=== PATIENT | male | born 1985 | race African-American/Black ===

== ENCOUNTER 2017-08-18 12:46 | Emergency (ER) | payer SELFPAY ==
[~2017-08-18] VITALS: Ht 175.3 cm; Wt 83.9 kg
[~2017-08-18 12:46] MED LIST: AUGMENTIN 875 M1 TAB PO; INDOMETHACIN50 MG PO; MEDROL DOSEPAK1 PAC PO; MOBIC15 MG PO; NEXIUM 40MG40 MG PO
--- NOTE | 2017-08-18 13:17 | ED CARDIAC/CP/PALPITATIONS ---
History of Present Illness General Chief Complaint: Chest Pain Stated Complaint: PT IS HAVING CHEST PAIN Source: patient (`), old records Exam Limitations: no limitations Vital Signs & Intake/Output Vital Signs & Intake/Output Vital Signs Date Time Temp Pulse Resp B/P B/P Pulse O2 O2 Flow FiO2 Mean Ox Delivery Rate 08/18 1703 97.6 59 18 115/69 98 Room Air 08/18 1436 98 Room Air 08/18 1435 97.1 72 18 117/76 98 Room Air 08/18 1312 98.1 75 17 118/78 98 Room Air Allergies Coded Allergies: NO KNOWN ALLERGIES (04/02/11) Reconcile Medications Aspirin (Aspirin*) 81 MG TAB.CHEW 1 TAB PO DAILY HEART HEALTH (Reported) Atorvastatin Calcium 40 MG TABLET 1 TAB PO DAILY CHOLESTEROL (Reported) Metoprolol Tartrate 25 MG TABLET 0.5 TAB PO BID HEART (Reported) Tylenol With Codeine (Tylenol With Codeine #3 Tablet) 300 MG-30 MG TABLET 1 TAB PO BIDP PRN pain Triage Note: RECEIVED 32 YO MALE S/P ND 04/30/17, PT C/O BURNING PAIN ACCROSS CHEST AND EPIGASTRIC AREA. EPIGASTRIC DISCOMFORT SINCE ND, PAIN ACCROSS CHEST 3 TO 4 DAYS. Triage Nurses Notes Reviewed? yes Onset: Abrupt Duration: week(s):, constant, waxing and waning Timing: recent history Quality/Severity: mild, aching Location: central Radiation: epigastric Activities at Onset: none Prior Chest Pain/Card Workup: mi, no stents Nitro Today/Relief: no nitro taken today Aspirin Today: 81 mg x 1, provided at home Associated Symptoms: denies HPI: 32-year-old male presents to ER history of myocardial infarction April 2017 high cholesterol hypertension and previous alcohol abuse complaining of chest pain central in nature reading to the epigastric region for the past several months after his heart attack. Patient states he does a lot of lifting at work he denies trauma or injury otherwise no shortness of breath pain with inspiration nausea vomiting or abdominal pain. He's been taking Tylenol without improvement he is not follow-up with his chief controller he's been compliant with taking all of his other medication. The patient denies alcohol tobacco or drug use (Compa STEPHENSON,Marcos) Past History Travel History Traveled to [place] past 21 day No Medical History Any Pertinent Medical History? see below for history Neurological: NONE EENT: NONE Cardiovascular: myocardial infarction Respiratory: NONE Gastrointestinal: GERD Hepatic: NONE Renal: NONE Musculoskeletal: NONE Psychiatric: NONE Endocrine: NONE Blood Disorders: NONE Cancer(s): NONE Surgical History Surgical History: non-contributory Psychosocial History What is your primary language B[place] Tobacco Use: Quit >30 days ago Family History Hx Contributory? No (Marcos Tse) Review of Systems Review of Systems Constitutional: Reports: see HPI. Comments Review of systems: See HPI, All other systems negative. Constitutional, no chills no fever HEENT: no sore throat no congestion Cardiovascular: chest pain Skin: no rashes, no change in skin Respiratory: No dyspnea no cough no sputum GI: No nausea no vomiting, Muscle skeletal: No joint pain, no back pain, no neck pain, Neurologic: , no headache Heme/endocrine: No bruising (Marcos Tse) Physical Exam Physical Exam General Appearance: well developed/nourished, no apparent distress, alert Cardiovascular: regular rate/rhythm Comments: Well-developed well-nourished person in no acute distress HEENT: Normal EENT exam; PERRL, EOMI, HEAD is atraumatic. moist mucous membranes. Neck: Supple, normal range of motion Back: Nontender, Full range of motion Cardiovascular: Regular rate and rhythms no murmurs rubs or gallops, normal JVP Respiratory: Chest tender.There were no bony deformities, no asymmetry. No respiratory distress. Patient speaking in full complete sentences. Breath sounds clear to auscultation bilaterally: NO W/R/R Abdomen: Soft, nontender nondistended Extremity: No edema, full range of motion of extremities, normal and equal pulses bilaterally, 5 out of 5 strength noted to bilateral upper and lower extremities Neuro: Alert oriented x3, motor sensory normal, There were no obvious focal neurologic abnormalities. Skin: No appreciable rash on exposed skin, skin is warm and dry. Psych: Mood and affect is normal, memory and judgment is normal. Core Measures ACS in differential dx? Yes CVA/TIA Diagnosis No Sepsis Present: No Sepsis Focused Exam Completed? No (Marcos Tse) Progress Differential Diagnosis: AMI, aortic dissection, atrial fibrillation, costochondritis, musculoskeletal pain, myocarditis, pericarditis, pneumonia, pneumothorax, pulmonary embolism, unstable angina Plan of Care: Orders Procedure Date/time Status TROPONIN LEVEL 08/18 1600 Complete EKG 08/18 1600 Active Telemetry/Rubber Goods Tester Water 08/18 1257 Active TROPONIN LEVEL 08/18 1257 Complete PARTIAL THROMBOPLASTIN TIME 08/18 1257 Complete PROTHROMBIN TIME 08/18 1257 Complete COMPREHENSIVE METABOLIC PANEL 08/18 1257 Complete CBC WITHOUT DIFFERENTIAL 08/18 1257 Complete EKG 08/18 1250 Active LIPASE 08/18 1113 Complete Laboratory Tests 08/18/17 1610: Troponin I < 0.01 08/18/17 1344: Urine Opiates Screen Cancelled, Methadone Screen Cancelled, Barbiturate Screen Cancelled, Ur Phencyclidine Scrn Cancelled, Amphetamines Screen Cancelled, U Benzodiazepines Scrn Cancelled, Urine Cocaine Screen Cancelled, Urine Cannabis Screen Cancelled 08/18/17 1312: Lipase Cancelled 08/18/17 1113: Anion Gap 11, Estimated GFR > 60, BUN/Creatinine Ratio 10.0, Glucose 108 H, Calcium 9.6, Total Bilirubin 1.1, AST 23, ALT 38, Alkaline Phosphatase 78, Troponin I < 0.01, Total Protein 7.4, Albumin 4.1, Globulin 3.3, Albumin/ Globulin Ratio 1.2, Lipase 201, PT 13.6 H, INR 1.24 H, APTT 32, CBC w Diff NO MAN DIFF REQ, RBC 5.11, MCV 90.7, MCH 30.1, MCHC 33.1, RDW 13.0, MPV 7.6, Gran % 43.1, Lymphocytes % 38.3, Monocytes % 10.7 H, Eosinophils % 7.4 H, Basophils % 0.5, Absolute Granulocytes 1.9, Absolute Lymphocytes 1.7, Absolute Monocytes 0.5 , Absolute Eosinophils 0.3, Absolute Basophils 0 Labs ordered old records reviewed patient acute ibuprofen as discussed with him plan of care need for repeat troponin. Case discussed with Dr. Edmond agrees with plan 08/18/2017 2:58:53 PM patient resting in no acute distress at this time 08/18/2017 4:13:04 PM patient resting in no acute distress pending repeat troponin I discussed with the patient at length all of their results. I had an extensive conversation regarding need for close follow up with their primary care physician this week as well as return precautions. I answered all of their questions, they feel comfortable with the plan and follow-up care. Diagnostic Imaging: Viewed by Me: Radiology Read. Discussed w/RAD: Radiology Read. Radiology Impression: PATIENT: MICHELLE ALARCON PRESENT AGE: 32 PATIENT ACCOUNT NO: [id number] : 86 LOCATION: [facility] ORDERING PHYSICIAN: Marcos STEPHENSON SERVICE DATE: 08/18/17-1342 EXAM TYPE: RAD - XRY-CHEST XRAY, TWO VIEWS EXAMINATION: XR CHEST CLINICAL INFORMATION: Chest pain COMPARISON: 01/12/2014 TECHNIQUE: 2 views of the chest were obtained. FINDINGS: The lungs are well expanded. There is no focal consolidation, edema, or effusion. No pneumothorax. The cardiomediastinal silhouette is within normal limits. No acute osseous abnormality. IMPRESSION: Clear lungs. DICTATED BY: Manjula GEIGER,Rustam DATE/TIME DICTATED:08/18/171405 SPECIAL EDUCATION COORDINATOR: [place] DATE/TIME TRANSCRIBED:08/18/171405 CONFIDENTIAL, DO NOT COPY WITHOUT APPROPRIATE AUTHORIZATION. <Electronically signed in Other Vendor System> SIGNED BY: Manjula GEIGER,Rustam 08/18/17 1411 Initial ED EKG: nsr at 80, no acute st seg chagnes, normal axis, nonspecific st seg changes Prior EKG: unchanged Rhythm Strip: normal sinus rhythm (Compa STEPHENSON,Marcos) Departure Departure Disposition: HOME OR SELF CARE Condition: Stable Clinical Impression Primary Impression: Atypical chest pain Referrals: Dede GEIGER,Paxton Harman (PCP/Family) Additional Instructions: Follow up with your primary care physician and chief controller next week. tylenol with codeine for pain- this is a narcotic and highly addictive. no driving or drinking alcohol while taking. return with any concerns Departure Forms: Customer Survey General Discharge Information Prescriptions: Current Visit Scripts Tylenol With Codeine (Tylenol With Codeine #3 Tablet) 1 TAB PO BIDP PRN pain #8 TAB (Compa STEPHENSON,Marcos) PA/GUN PERFORATOR LOADER Co-Sign Statement Statement: ED Attending supervision documentation- [] I saw and evaluated the patient. I have also reviewed all the pertinent lab results and diagnostic results. I agree with the findings and the plan of care as documented in the PA's/GUN PERFORATOR LOADER's documentation. [X] I have reviewed the ED Record and agree with the PA's/GUN PERFORATOR LOADER's documentation. [] Additions or exceptions (if any) to the PAs/GUN PERFORATOR LOADER's note and plan are summarized below: [] (Feli GEIGER,Mansoor Henriquez) Critical Care Note Critical Care Note Critical Care Time: non-applicable (Compa STEPHENSON,Marcos)
[2017-08-18] MEDS ORDERED: METOPROLOL TART25 M1 PO (13:21)
[2017-08-18] MEDS ORDERED: ASPIRIN81 M4 PO (13:22)
[2017-08-18] MEDS ORDERED: ATORVASTATIN CA40 M1 PO (13:22)
[2017-08-18 13:35] LABS: PT 13.6 SEC (9.4-12.5); PTT 32 SEC (25-37)
[2017-08-18 13:40] LABS: ABSOLUTE BASOPHIL COUNT 0 /CUMM (0.0-0.2); ABSOLUTE EOSINOPHIL COUNT 0.3 /CUMM (0.0-0.7); ABSOLUTE GRANULOCYTE CT 1.9 /CUMM (1.4-6.5); ABSOLUTE LYMPH COUNT 1.7 /CUMM (1.2-3.4); ABSOLUTE MONOCYTE COUNT 0.5 /CUMM (0.10-0.60); BASOPHIL % 0.5 % (0.0-2.0); EOSINOPHIL % 7.4 % (0-5); GRANULOCYTE % 43.1 % (42.2-75.2); HEMATOCRIT 46.3 % (42-52); MEAN CORPUSCULAR HGB 30.1 PG (27.0-31.0); MEAN CORPUSCULAR HGB CONC 33.1 G/DL (33.0-37.0); MEAN CORPUSCULAR VOLUME 90.7 FL (80.0-94.0); MEAN PLATELET VOLUME 7.6 FL (7.4-10.4); PLATELET COUNT 320 /CUMM (130-400); RED BLOOD CELL CT 5.11 /CUMM (4.70-6.10); WHITE BLOOD CELL COUNT 4.4 /CUMM (4.8-10.8)
--- NOTE | 2017-08-18 14:11 | RADIOLOGY REPORT ---
EXAMINATION: XR CHEST CLINICAL INFORMATION: Chest pain COMPARISON: 01/12/2014 TECHNIQUE: 2 views of the chest were obtained. FINDINGS: The lungs are well expanded. There is no focal consolidation, edema, or effusion. No pneumothorax. The cardiomediastinal silhouette is within normal limits. No acute osseous abnormality. IMPRESSION: Clear lungs.
[2017-08-18] MEDS ORDERED: TYLENOL WITH C1 EACH PO (16:46)
[2017-08-18 17:03] VITALS: BP 115/69
== END 2017-08-18 17:16 ==
LOC: ERH 12:46
PROVIDERS: Physician Assistant Medical
DX: R07.89 Other chest pain (principal)
CPT/HCPCS: 71046; 80307; 93005; 93010